=== PATIENT | female | born 1955 | race African-American/Black ===

== ENCOUNTER → 2016-09-03 | Outpatient (CLI) | payer MEDICARE, MEDICAID ==
[~2016-09-03] MED LIST: CARI350T PO; CLON0.1T14 PO; DIAZ10TA PO; DOCU-138 PO; MORP15TA67 PO; NITR0.4T3 SL; OXYC10TA48 PO; REGADENOSON 0.4 MG/5 ML IV ONE; [UNRECOGNIZED DRUG - OTHER]
== END | disposition home or self-care (01) ==
LOC: NM 08:31
DX: I10 Essential (primary) hypertension (principal)
CPT/HCPCS: 78452; 93017; A9500; C1893; J2785

== ENCOUNTER 2018-03-13 09:28 | Day surgery (SDC) | payer MEDICARE, MEDICAID ==
[~2018-03-13] VITALS: Ht 154.9 cm; Wt 81.2 kg
[~2018-03-13 09:28] MED LIST changes: -CARI350T PO; -NITR0.4T3 SL; +NITR0.4T49 SL; -REGADENOSON 0.4 MG/5 ML IV ONE; +S350 PO
[2018-03-13] MEDS ORDERED: SIMETHICONE 40 MG/0.6 ML 30ML ONE (09:37)
[2018-03-13] MEDS ORDERED: LACTATED RINGERS 1,000 ML IV SCH (11:20)
[2018-03-13] MEDS ORDERED: HYDR25TA PO (11:57)
[2018-03-13] MEDS ORDERED: PREG75CA PO (11:57)
[2018-03-13] MEDS ORDERED: AMLO1TAB15 PO (11:57)
[2018-03-13] MEDS ORDERED: OMEP40CA34 PO (11:57)
[2018-03-13] MEDS ORDERED: OXYC-105 PO (11:58)
[2018-03-13] MEDS ORDERED: PROPOFOL 10MG/ML 100ML 100 ML IV ONE (12:22)
[2018-03-13] MEDS ORDERED: FENTANYL CITRATE/PF 50MCG/ML 2ML VIAL ONE (12:53)
[2018-03-13] MEDS ORDERED: PROPOFOL 200MG/20ML VIAL IV ONE (12:53)
== END 2018-03-13 15:00 | disposition home or self-care (01) ==
LOC: OR 09:28
PROVIDERS: ATTEND Internal Medicine Gastroenterology
DX: K29.60 Other gastritis without bleeding (principal); K21.9 Gastro-esophageal reflux disease without esophagitis; K44.9 Diaphragmatic hernia without obstruction or gangrene; K64.8 Other hemorrhoids; G89.29 Other chronic pain; I10 Essential (primary) hypertension; Z90.49 Acquired absence of other specified parts of digestive tract; Z90.710 Acquired absence of both cervix and uterus; Z90.721 Acquired absence of ovaries, unilateral; Z90.722 Acquired absence of ovaries, bilateral; Z98.0 Intestinal bypass and anastomosis status
CPT/HCPCS: 36415; 43239; 45378; 80051; 88305; 88313; 93005; J2704; J3010; J7120